=== PATIENT | female | born 1980 | race Caucasian/White ===

== ENCOUNTER 2025-01-03 20:10 | Emergency (ER) | payer BC, SELFPAY ==
[2025-01-03 20:18] VITALS: BP 157/105
[2025-01-03 20:42] LABS: Hematocrit 39.7 % (37.0-47.0); Hemoglobin 14.1 g/dL (12.0-16.0); Mean Corp Hgb Conc. 35.5 g/dL (33.0-37.0); Mean Platelet Volume 8.9 fL (7.4-10.4); Platelet Count 307 10^3/uL (130-400); Red Blood Cell Count 4.41 10^6/uL (4.20-5.40); Red Cell Dist. Width 12.4 % (11.5-14.5); White Blood Cell Count 13.3 10^3/uL (4.8-10.8)
[2025-01-03 20:53] LABS: ALT (SGPT) 19 U/L (0-35); AST (SGOT) 21 U/L (14-36); Albumin 4.7 g/dl (3.5-5.0); Alkaline Phosphatase 49 U/L (38-126); Blood Urea Nitrogen 9 mg/dl (7-17); Calcium 9.6 mg/dl (8.4-10.2); Carbon Dioxide 32 mmol/L (22-30); Chloride 91 mmol/L (98-107); Glucose 90 mg/dl (70-99); Potassium 4.2 mmol/L (3.5-5.1); Sodium 130 mmol/L (135-145); Total Bilirubin 0.6 mg/dl (0.2-1.3); Total Protein 7.2 g/dl (6.3-8.2); eGFR > 60.00
[2025-01-03 21:05] LABS: Troponin I < 0.012 ng/ml
[2025-01-03 21:13] LABS: % Basophils 0.6 % (0-2); % Eosinophils 1.5 % (0-6); % Immature Granulocytes 0.3 % (0-0.5); % Lymphocytes 31.2 % (20.5-51.1); % Monocytes 7.2 % (1.7-9.3); % Neutrophils 59.2 % (42.2-75.2); Absolute Basophils 0.1 10^3/uL (0-0.2); Absolute Eosinophils 0.2 10^3/uL (0-0.7); Absolute Lymphocytes 4.1 10^3/uL (1.2-3.4); Absolute Neutrophils 7.9 10^3/uL (1.4-6.5); Nucleated Red Blood Cells % 0 %
--- NOTE | 2025-01-03 23:07 | ED.GENMED ---
History of Present Illness
General
Chief Complaint: Fatigue
Time Seen by Provider: 01/03/25 23:07
History of Present Illness
History of Present Illness:
TIME OF INITIAL ENCOUNTER: 11:20 PM
HPI: The patient presents due to severe fatigue. She went to urgent care earlier where they felt the EKG was abnormal and was sent here for further evaluation. Although her primary care doctor suggested the possibly of pneumonia, the patient has
no cough and no fevers and no shortness of breath. She has a history of lupus on Plaquenil. 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
EXAM:
GENERAL: The patient appears generally weak and tired
HEENT: Moist oral mucosa
CARDIOVASCULAR: No murmurs, normal heart rate, regular rhythm, No chest wall tenderness
PULMONARY: No respiratory distress, breath sounds are clear and equal
ABDOMEN: Soft with no peritoneal signs, no tenderness
NEUROLOGIC: Good strength all extremities, no coordination deficits�normal finger-nose testing, she does speak slowly as the states that she is very tired
PSYCHIATRIC: Appropriate mental status, normal insight and judgement
EXTREMITIES: Nontender, no edema, moves all extremities equally
SKIN: No rash, no lesions
NUMBER AND COMPLEXITY OF PROBLEMS ADDRESSED AT THE ENCOUNTER
� Chronic conditions affecting care: Bipolar, high blood pressure
� Acute Exacerbation and/or Progression of Chronic Illness: This is an acute problem
� Differential Diagnosis includes: Viral syndrome, electrolyte abnormality, hypothyroidism, dehydration, SUZI, ACS very unlike, psychiatric illness
AMOUNT AND/OR COMPLEXITY OF DATA TO BE REVIEWED AND ANALYZED
� I performed an independent evaluation of and my interpretation is:
EKG: Sinus 88, normal axis, no acute ST abnormality
CT:
X-rays:
Laboratory Studies: White count 13.3, hemoglobin normal, sodium 130, bicarb 32, troponin less than 0.012
Other:
� Review of other/old records: No old records available for review
� Clinical information was obtained by an independent historian: Spoke to at bedside
� Prescriptions/Medications Considered but not given:
� Further testing considered but not performed:
RISK OF COMPLICATIONS AND/OR MORBIDITY OR MORTALITY OF PATIENT MANAGEMENT
� Social determinants of health affecting care: Lives at home
� Discussion with other providers:
� Escalation of care including admission/observation vs risk of discharge considered: I did review the initial EKG which showed some nonspecific findings but EKG here is unremarkable. Mild hyponatremia noted�will give a liter of
fluid but relatively low suspicion for dehydration. White count slightly high but she is afebrile with no other infectious symptoms. Vital signs are not consistent with sepsis.
ANY OTHER UPDATES:
1:30 AM: I reassessed patient. Magnesium normal, thyroid normal. She was given IV fluids. Overall she feels improved but still feels tired but feels comfortable with going home to sleep.
Phy Exam
Physical Exam
Physical Exam:
See HPI
Course
Orders/Labs/Results
Orders:
Orders
01/03/25 20:11
EKG [Electrocardiogram (*1)] Urgent
Reason for Study: Chest Pain
EKG- Treatment ONCE
01/03/25 20:24
Complete Blood Count/With Diff Urgent
Comprehensive Metabolic Panel Urgent
Magnesium Urgent
Comment: ADDED
TSH Reflex To Free T4 Urgent
Comment: ADD ON
Troponin I Urgent
01/03/25 23:08
Add On- LAB Urgent
Tests Added?: tsh reflex fT4
0.9% Sodium Chloride 1000 ml [Nss] 1,000 ml IV BOLUS
01/03/25 23:38
Add On- LAB Urgent
Tests Added?: magnesium
Abnormal Lab Results
01/03/25
20:24
WBC 13.3 H 10^3/uL
(4.8-10.8)
MCH 32.0 H pg
(27.0-31.0)
Absolute Neuts (auto) 7.9 H 10^3/uL
(1.4-6.5)
Absolute Lymphs (auto) 4.1 H 10^3/uL
(1.2-3.4)
Absolute Monos (auto) 1.0 H 10^3/uL
(0.1-0.6)
Sodium 130 L mmol/L
(135-145)
Chloride 91 L mmol/L
(98-107)
Carbon Dioxide 32 H mmol/L
(22-30)
01/03/25 20:24
01/03/25 20:24
Vital Signs
Initial and Last Documented VS:
Initial Vital Signs
Temp Pulse Resp BP Pulse Ox
36.9 C 86 18 157/105 99
01/03/25 20:18 01/03/25 20:18 01/03/25 20:18 01/03/25 20:18 01/03/25 20:18
Last Documented Vital Signs
Temp Pulse Resp BP Pulse Ox
36.9 C 78 25 141/87 96
01/03/25 20:18 01/04/25 00:30 01/04/25 00:30 01/04/25 00:00 01/04/25 00:30
*Critical Care Note
Total Time (30-74mins, 75-104mins- exclusive of procedures): Not Applicable
ED Attending Note
-
Portions of this chart may have been created with voice recognition software.� Occasional wrong word or��sound alike� substitutions may have occurred due to the inherent limitations of voice recognition software.
Discharge Plan
Departure
Referrals:
NONE,* [Family Provider] -
Interventions
Interventions:
*Risk Screen - Suicide Last Done: 01/03/25 20:18
*General Assessment Last Done: 01/03/25 20:18
*Neglect/Abuse Screening Last Done: 01/03/25 20:18
ED- Fall Risk Assessment Last Done: 01/03/25 23:12
*ED COVID-19 Vaccine History Last Done: 01/03/25 20:18
Discharge Date and Time
Print Language: YI
[2025-01-03 23:14] VITALS: BP 137/78
[2025-01-03 23:15] VITALS: BMI 78.6
[2025-01-03] MEDS: NSS 1000 IV (23:22)
[2025-01-04] VITALS: BP 141/87
[2025-01-04 00:05] LABS: Magnesium 2.3 mg/dl (1.6-2.3)
[2025-01-04 00:31] LABS: TSH Reflex To Free T4 2.22 uIU/ml (0.47-4.68)
[2025-01-04 01:08] VITALS: BP 131/81
== END 2025-01-04 01:37 | disposition home or self-care (01) ==
LOC: EMR 20:10
PROVIDERS: EMERGENCY PHYSICIAN Emergency Medicine
DX: R53.83 Other fatigue (principal); E87.1 Hypo-osmolality and hyponatremia; M32.9 Systemic lupus erythematosus, unspecified; I10 Essential (primary) hypertension; F41.9 Anxiety disorder, unspecified; Z79.899 Other long term (current) drug therapy
CPT/HCPCS: 99284; 80053; 83735; 84443; 84484; 85025; 93005